=== PATIENT | male | born 1940 | race Caucasian/White ===

== ENCOUNTER 2018-08-24 18:04 | Emergency (ER) | payer MEDICARE, OTHER ==
[~2018-08-24] VITALS: Ht 162.6 cm; Wt 104.5 kg
[~2018-08-24 18:04] MED LIST: ASPI-611 PO; CHOL400T57 PO; FLO0.4C PO; GABA-347 PO; LISI-600 PO; MELO-100 PO; OXYB5TAB80 PO; ZOC40T PO
[2018-08-24] MEDS ORDERED: fentaNYL/PF 50MCG/1 ML 2ML syringe IM ONE (18:40)
[2018-08-24] MEDS ORDERED: LIDOcaine 2% 10ml TOPICAL JELLY (Urojet) MM ONE (18:40)
[2018-08-24 18:44] LABS: BASOPHILS % (AUTO) 0.7 % (0-1); EOSINOPHILS # (AUTO) 0.2 X10'3 (0-0.9); EOSINOPHILS % (AUTO) 5.4 % (0-6); LYMPHOCYTES # (AUTO) 1.1 X10'3 (1.1-4.8); LYMPHOCYTES % (AUTO) 25.4 % (21-51); MEAN CORPUSCULAR HEMOGLOBIN 25.9 PG (27.0-31.0); MEAN CORPUSCULAR HGB CONC 32.3 g/dL (33.0-36.5); MEAN CORPUSCULAR VOLUME 80.3 FL (78-98); MEAN PLATELET VOLUME 8.4 FL (7.4-10.4); MONOCYTES # (AUTO) 0.4 X10'3 (0-0.9); MONOCYTES % (AUTO) 9.2 % (2-12); NEUTROPHILS # (AUTO) 2.6 X10'3 (1.8-7.7); NEUTROPHILS % (AUTO) 59.3 % (42-75); PLATELET COUNT 160 X10'3 (140-440); RED BLOOD COUNT 4.23 X10'6 (4.70-6.10); RED CELL DISTRIBUTION WIDTH 14.3 % (11.5-14.5); WHITE BLOOD COUNT 4.4 X10'3 (4.5-11.0)
[2018-08-24 19:05] LABS: ALANINE AMINOTRANSFERASE 26 U/L (12-78); ALBUMIN 3.7 G/DL (3.4-5.0); ALBUMIN/GLOBULIN RATIO 0.9 (1.1-1.5); ALKALINE PHOSPHATASE 116 IU/L (46-116); ANION GAP 8 (8-16); ASPARTATE AMINO TRANSFERASE 22 U/L (10-37); BILIRUBIN,TOTAL 0.2 MG/DL (0.1-1.0); BLOOD UREA NITROGEN 22 MG/DL (7-18); CALCIUM 9.3 MG/DL (8.5-10.1); CHLORIDE 101 MMOL/L (99-107); CREATININE 1.05 MG/DL (0.60-1.10); GLUCOSE 111 MG/DL (70-104); POTASSIUM 4.4 MMOL/L (3.5-5.1); SODIUM 137 MMOL/L (135-145); TOTAL CARBON DIOXIDE 28.5 MMOL/L (24-32); TOTAL PROTEIN 7.6 G/DL (6.4-8.2); eGFR 68 ML/MIN
[2018-08-24] MEDS ORDERED: ondansetron 4mg rapidly disintigrating tab PO ONE (19:15)
[2018-08-24 20:20] VITALS: BP 142/79
== END 2018-08-24 20:23 | disposition home or self-care (01) ==
LOC: ER 18:05
DX: R33.9 Retention of urine, unspecified (principal); I10 Essential (primary) hypertension; Z98.890 Other specified postprocedural states; Z88.5 Allergy status to narcotic agent; Z79.82 Long term (current) use of aspirin; Z88.8 Allergy status to other drugs, medicaments and biological substances; Z85.46 Personal history of malignant neoplasm of prostate; Z79.899 Other long term (current) drug therapy
CPT/HCPCS: 36415; 51702; 80053; 85025; 99284

== ENCOUNTER 2018-09-09 07:24 | Emergency (ER) | payer MEDICARE, OTHER ==
[~2018-09-09] VITALS: Ht 160 cm; Wt 101.4 kg
[2018-09-09 08:23] LABS: CLARITY,URINE CLEAR (Clear); COLOR,URINE YELLOW (Yellow); GLUCOSE, URINE NEGATIVE (Neg); KETONES,URINE NEGATIVE (Neg); LEUKOCYTE ESTERASE ,URINE SMALL (Neg); NITRITES, URINE POSITIVE (Neg); OCCULT BLOOD,URINE LARGE (Neg); PROTEIN,URINE NEGATIVE (Neg); UROBILINOGEN,URINE 0.2 E.U/dL (0.2-1.0)
[2018-09-09 08:34] VITALS: BP 146/81
--- NOTE | 2018-09-09 08:35 | NUR ---
Catheter bag replaced with leg bag. Pt given new bag for nighttime use. Educated on changing out bag reviewed with pt who verbalizes understanding at this time.
[2018-09-09 09:04] LABS: SQUAMOUS EPITHELIAL CELL,UR NONE SEEN /LPF (FEW)
[2018-09-09 09:06] LABS: BACTERIA,URINE 2+ /HPF (Neg)
[2018-09-09 09:07] LABS: UA COLLECTION TYPE FOLEY CATH
== END 2018-09-09 08:51 | disposition home or self-care (01) ==
LOC: ER 07:25
DX: R33.9 Retention of urine, unspecified (principal); I10 Essential (primary) hypertension; Z88.5 Allergy status to narcotic agent; Z88.8 Allergy status to other drugs, medicaments and biological substances; Z79.82 Long term (current) use of aspirin; Z79.899 Other long term (current) drug therapy
CPT/HCPCS: 51702; 81001; 87077; 87088; 87186; 99284

== ENCOUNTER 2018-09-09 14:00 | Emergency (ER) | payer MEDICARE, OTHER ==
[~2018-09-09] VITALS: Ht 162.6 cm; Wt 96.0 kg
--- NOTE | 2018-09-09 15:45 | NUR ---
pt's bladder flushed per md. clots evident in basin. new bag attached. md aware.
[2018-09-09 16:22] VITALS: BP 127/72
== END 2018-09-09 16:30 | disposition home or self-care (01) ==
LOC: ER 14:00
DX: T83.098A Other mechanical complication of other urinary catheter, initial encounter (principal); I10 Essential (primary) hypertension; Z88.5 Allergy status to narcotic agent; Z88.8 Allergy status to other drugs, medicaments and biological substances; Z79.82 Long term (current) use of aspirin; Z79.899 Other long term (current) drug therapy; Z98.890 Other specified postprocedural states; Y83.8 Other surgical procedures as the cause of abnormal reaction of the patient, or of later complication, without mention of misadventure at the time of the procedure; Y92.89 Other specified places as the place of occurrence of the external cause
CPT/HCPCS: 99284

== ENCOUNTER 2021-05-20 09:27 | Day surgery (SDC) | payer MEDICARE ==
[2021-05-19 11:42] LABS: BASOPHILS % (AUTO) 0.5 % (0-1); EOSINOPHILS # (AUTO) 0.2 X10'3 (0-0.9); EOSINOPHILS % (AUTO) 3.4 % (0-6); HEMATOCRIT 36.6 % (42.0-52.0); HEMOGLOBIN 12.2 g/dl (14.0-17.9); LYMPHOCYTES # (AUTO) 0.9 X10'3 (1.1-4.8); LYMPHOCYTES % (AUTO) 18.9 % (21-51); MEAN CORPUSCULAR HEMOGLOBIN 28.2 PG (27.0-31.0); MEAN CORPUSCULAR HGB CONC 33.2 g/dL (33.0-36.5); MEAN CORPUSCULAR VOLUME 85.1 FL (78-98); MEAN PLATELET VOLUME 9.1 FL (7.4-10.4); MONOCYTES # (AUTO) 0.3 X10'3 (0-0.9); NEUTROPHILS # (AUTO) 3.3 X10'3 (1.8-7.7); NEUTROPHILS % (AUTO) 70.2 % (42-75); PLATELET COUNT 156 X10'3 (140-440); RED CELL DISTRIBUTION WIDTH 13.8 % (11.5-14.5); WHITE BLOOD COUNT 4.7 X10'3 (4.5-11.0)
[2021-05-19 11:56] LABS: PARTIAL THROMBOPLASTIN TIME 25 SECONDS (22-32)
[2021-05-19 11:57] LABS: ALANINE AMINOTRANSFERASE 25 U/L (12-78); ALBUMIN 3.6 G/DL (3.4-5.0); ALBUMIN/GLOBULIN RATIO 0.9 (1.1-1.5); ALKALINE PHOSPHATASE 107 IU/L (46-116); ANION GAP 7 (8-16); ASPARTATE AMINO TRANSFERASE 18 U/L (10-37); BILIRUBIN,TOTAL 0.4 MG/DL (0.1-1.0); BLOOD UREA NITROGEN 19 MG/DL (7-18); BUN/CREATININE RATIO 17.8 (5.4-32.0); CALCIUM 8.7 MG/DL (8.5-10.1); CHLORIDE 106 MMOL/L (99-107); CREATININE 1.07 MG/DL (0.60-1.10); GLUCOSE 101 MG/DL (70-104); POTASSIUM 4.5 MMOL/L (3.5-5.1); SODIUM 142 MMOL/L (135-145); TOTAL CARBON DIOXIDE 29.5 MMOL/L (24-32); TOTAL PROTEIN 7.4 G/DL (6.4-8.2); eGFR 66 ML/MIN
[~2021-05-20] VITALS: Ht 160 cm; Wt 110.0 kg
[2021-05-20] VITALS (12 sets, daily range): BP systolic 146–173; BP diastolic 71–91
[~2021-05-20 09:27] MED LIST changes: -LISI-600 PO; +LISI20TA28 PO
[2021-05-20] MEDS ORDERED: GABA300C (09:52)
[2021-05-20] MEDS ORDERED: CELE-85 PO (09:52)
[2021-05-20] MEDS ORDERED: pepcid (09:53)
[2021-05-20] MEDS ORDERED: nitroGLYCERIN 0.4mg SUBLingual tab SL PRN (10:00)
[2021-05-20] MEDS ORDERED: diphenhydrAMINE 25mg capsule PO PRN (10:00)
[2021-05-20] MEDS ORDERED: LORazepam 0.5 MG tablet PO PRN (10:00)
[2021-05-20] MEDS ORDERED: midazolam 1 mg/ML 2ml injection ONE (10:18)
[2021-05-20] MEDS ORDERED: LIDOcaine 1% (10mg/ml)w/preservative injection 20ml MDV ONE (10:18)
[2021-05-20] MEDS ORDERED: fentaNYL/PF 50MCG/1 ML 2ML syringe ONE (10:18)
[2021-05-20] MEDS ORDERED: iohexol 350 MG/ML 50ML vial IV ONE ×2 (10:19→11:17)
[2021-05-20] MEDS ORDERED: iohexol 350MG/ML 100ml bottle IV ONE (10:19)
[2021-05-20] MEDS ORDERED: OXAZEpam 15mg capsule PO PRN (12:20)
[2021-05-20] MEDS ORDERED: HYDROcodone/acetaminophen 5mg/325mg tablet PO PRN (12:20)
[2021-05-20] MEDS ORDERED: ondansetron/PF 4mg/2ml inj IV PRN (12:20)
[2021-05-20] MEDS ORDERED: HYDROcodone/acetaminophen 10/325mg tab PO PRN (12:20)
[2021-05-20] MEDS ORDERED: normal saline 1000ml 1,000 ML IV SCH (12:20)
[2021-05-20] MEDS ORDERED: proCHLORperazine 10 MG/2 ml inj IV PRN (12:20)
== END 2021-05-20 17:50 | disposition home or self-care (01) ==
LOC: SSTAY O 09:27
PROVIDERS: ATTEND Internal Medicine Cardiovascular Disease
DX: R94.39 Abnormal result of other cardiovascular function study (principal); I25.10 Atherosclerotic heart disease of native coronary artery without angina pectoris; I42.9 Cardiomyopathy, unspecified; I10 Essential (primary) hypertension; E78.5 Hyperlipidemia, unspecified; E03.9 Hypothyroidism, unspecified; Z79.01 Long term (current) use of anticoagulants; Z79.899 Other long term (current) drug therapy; Z79.82 Long term (current) use of aspirin; Z88.5 Allergy status to narcotic agent; Z88.8 Allergy status to other drugs, medicaments and biological substances; Z87.891 Personal history of nicotine dependence
CPT/HCPCS: 36415; 71046; 71250; 80053; 83880; 85025; 85610; 85730; 93005; 93458; 93880; 99152; 99153; C1760; C1769; J1644; J2001; J2250; J3010; J7030; Q0163; Q9967; A4620; A6258

== ENCOUNTER 2021-05-29 09:52 | Outpatient (CLI) | payer MEDICARE ==
[~2021-05-29 09:52] MED LIST changes: +CELE-85 PO; -GABA-347 PO; +GABA300C PO; -MELO-100 PO; +pepcid
[2021-05-29 10:50] LABS: ABG BASE EXCESS -0.6 mmol/L (-2.0-2.0); ABG HCO3 24.7 mmol/L (22.0-26.0); ABG OXYGEN SATURATION 92.2 % (94-97); ABG PCO2 (T) 42.9 mmHg (35.0-48.0); ABG PO2 (T) 65.2 mmHg (75.0-100.0); ALLEN'S TEST POSITIVE; FCOHb 1.1 % (0.0-3.9); FMetHb 0.3 % (0.0-1.5); FO2Hb 90.9 % (94-97); TOTAL HEMOGLOBIN 12.7 G/dl (14.0-18.0)
[2021-05-30] MEDS ORDERED: diphenhydrAMINE 50 mg/ml inj ONE (05:29)
[2021-05-30] MEDS ORDERED: haloperidol lactate 5mg/ml inj ONE (05:29)
[2021-05-30] MEDS ORDERED: LORazepam 2 mg/ml vial ONE (05:30)
== END 2021-05-29 23:59 | disposition home or self-care (01) ==
LOC: RT 09:52
PROVIDERS: ATTEND Thoracic Surgery (Cardiothoracic Vascular Surgery)
DX: R09.02 Hypoxemia (principal); G47.30 Sleep apnea, unspecified
CPT/HCPCS: 36600; 82803; 85018; 94010; 94727; 94729; J1200; J1630; J2060

== ENCOUNTER 2021-06-01 12:30 | Outpatient (CLI) | payer MEDICARE ==
[~2021-06-01] VITALS: Ht 160 cm; Wt 108.9 kg
[2021-06-01 14:03] LABS: BASOPHILS % (AUTO) 0.6 % (0-1); EOSINOPHILS # (AUTO) 0.1 X10'3 (0-0.9); EOSINOPHILS % (AUTO) 2.5 % (0-6); LYMPHOCYTES # (AUTO) 0.9 X10'3 (1.1-4.8); LYMPHOCYTES % (AUTO) 16.8 % (21-51); MEAN CORPUSCULAR HEMOGLOBIN 28.2 PG (27.0-31.0); MEAN CORPUSCULAR HGB CONC 32.7 g/dL (33.0-36.5); MEAN CORPUSCULAR VOLUME 86.2 FL (78-98); MEAN PLATELET VOLUME 9.3 FL (7.4-10.4); MONOCYTES # (AUTO) 0.4 X10'3 (0-0.9); MONOCYTES % (AUTO) 7.9 % (2-12); NEUTROPHILS % (AUTO) 72.2 % (42-75); PRE OP HEMATOCRIT 37.4 % (42.0-52.0); PRE OP HEMOGLOBIN 12.2 g/dL (14.0-17.9); PRE OP PLATELET COUNT 138 X10'3 (140-440); RED BLOOD COUNT 4.34 X10'6 (4.70-6.10); RED CELL DISTRIBUTION WIDTH 14.5 % (11.5-14.5)
[2021-06-01 14:14] LABS: PRE OP PROTIME 10.6 SECONDS (9.0-12.0)
[2021-06-01 14:15] LABS: ALBUMIN 3.6 G/DL (3.4-5.0); ALBUMIN/GLOBULIN RATIO 0.9 (1.1-1.5); ALKALINE PHOSPHATASE 117 IU/L (46-116); BLOOD UREA NITROGEN 22 MG/DL (7-18); BUN/CREATININE RATIO 16.5 (5.4-32.0); CALCIUM 9.2 MG/DL (8.5-10.1); CHLORIDE 104 MMOL/L (99-107); CREATININE 1.33 MG/DL (0.60-1.10); PRE OP ALT 24 U/L (30-65); PRE OP ANION GAP 8 (8-16); PRE OP AST 18 U/L (10-37); PRE OP BILIRUB, TOTAL 0.3 MG/DL (0.0-1.0); PRE OP GLUCOSE 129 MG/DL (70-104); PRE OP POTASSIUM 4.5 MMOL/L (3.4-5.1); PRE OP SODIUM 139 MMOL/L (135-145); TOTAL CARBON DIOXIDE 26.9 MMOL/L (24-32); TOTAL PROTEIN 7.6 G/DL (6.4-8.2); eGFR 52 ML/MIN
[2021-06-01 14:54] LABS: CLARITY,URINE CLEAR (Clear); GLUCOSE, URINE NEGATIVE (Neg); KETONES,URINE NEGATIVE (Neg); LEUKOCYTE ESTERASE ,URINE NEGATIVE (Neg); NITRITES, URINE NEGATIVE (Neg); OCCULT BLOOD,URINE NEGATIVE (Neg); PH,URINE 5.5 (4.8-8.0); PROTEIN,URINE NEGATIVE (Neg); UROBILINOGEN,URINE 0.2 E.U/dL (0.2-1.0)
[2021-06-01 14:56] LABS: COLOR,URINE STRAW (Yellow); UA COLLECTION TYPE VOIDED
[2021-06-04] MEDS ORDERED: ringers solution, lacted 1,000 ML IV SCH (05:00)
[2021-06-04] MEDS ORDERED: LORazepam 2 mg/ml vial IV ONE (05:30)
[2021-06-04] MEDS ORDERED: vancomycin 1,500 MG in NS 300ml IV soln IV ONE (05:30)
[2021-06-04] MEDS ORDERED: metoprolol tartrate 12.5mg (1/2 tablet) PO ONE (05:30)
[2021-06-04] MEDS ORDERED: cefazolin/dext.iso 2gm/50ml IV ONE (05:30)
[2021-06-04] MEDS ORDERED: gabapentin 400mg capsule PO ONE (05:30)
[2021-06-04] MEDS ORDERED: Insulin Reg/NS 100units/100mL 100 ML IV SCH (05:30)
[2021-06-04] MEDS ORDERED: DOCUMENT DATE & TIME OF BETA-BLOCKER PO ONE (05:30)
[2021-06-04] MEDS ORDERED: mupirocin 2% nasal ointment 1gm UD NS SCH (05:30)
[2021-06-04] MEDS ORDERED: famotidine 20mg tablet PO ONE (05:30)
== END 2021-06-01 23:59 | disposition home or self-care (01) ==
LOC: PRE-OP 12:30 → EDSTATUS 06-04 08:00
PROVIDERS: ATTEND Thoracic Surgery (Cardiothoracic Vascular Surgery)
DX: Z01.812 Encounter for preprocedural laboratory examination (principal); I44.7 Left bundle-branch block, unspecified; I49.3 Ventricular premature depolarization; Z20.822 Contact with and (suspected) exposure to COVID-19
CPT/HCPCS: 36415; 80053; 81003; 83036; 85025; 85610; 85730; 86885; 86900; 86901; 86920; 87081; 93005; 93971; U0003; U0005; J0690; J1815; J3370; J7040; J7120